=== PATIENT | female | born 1960 ===

== ENCOUNTER 2017-11-11 09:02 | Day surgery (SDC) | payer MEDICARE ==
[2017-11-01 15:00] VITALS: BMI 25.0
[2017-11-11] MEDS ORDERED: Lidocaine 2% Jelly (Uro-Jet) ONE (09:57)
[2017-11-11] MEDS ORDERED: Iohexol 240 200 ML ONE (10:00)
[2017-11-11] MEDS ORDERED: Iohexol 240 200 ML IJ ONE (10:19)
[2017-11-11] MEDS ORDERED: Lactated Ringer's 1,000 ML IV ONE (10:25)
[2017-11-11] MEDS ORDERED: Propofol 10 mg/ml Inj (20 ML) ONE (10:29)
[2017-11-11] MEDS ORDERED: Midazolam 2 MG/2 ML VIAL ONE (10:30)
[2017-11-11] MEDS ORDERED: HYDROmorphone 0.5 mg/0.5 ml ISec IVP PRN (11:02)
[2017-11-11] MEDS ORDERED: Lactated Ringer's 1,000 ML IV SCH (11:15)
[2017-11-11 13:06] VITALS: RESP 18
[2017-11-11 13:33] VITALS: BP 110/70; PULSE 60; TEMP 98; O2SAT 99
--- NOTE | 2017-11-11 15:01 | RAD ---
PROCEDURE: Intraoperative Fluoroscopy. HISTORY: CYSTOGRAM FINDINGS: Fluoroscopic assistance was provided for cystogram. Please refer to the operative report from DHAVAL Ghotra. Three images submitted 0.2 minutes fluoro time employed.
--- NOTE | 2017-11-20 14:17 | OP ---
PROCEDURE DATE: 11/12/2017 PREOPERATIVE DIAGNOSIS: Urinary incontinence. POSTOPERATIVE DIAGNOSIS: Urinary incontinence. PROCEDURE: Cystoscopy and cystogram. SURGEON: Eddi Oscar MD DESCRIPTION OF PROCEDURE: The patient was placed on the operating room table in a supine position. The area of the groin was draped and prepped in the sterile manner. At this time, number 16 two-way Cody catheter was inserted and the initial bladder was emptied. She had about 200 mL, but she had not voided prior to coming onto the operating room table. At this time, the bladder was filled capacity with cystographic material. She was able to hold about 350 mL in the bladder. At that point, she was full, I asked her to cough, Valsalva and attempt to avoid and in all incidences, she generated a maximum of bladder neck. Following this, the catheter was removed. The patient was asked to cough vigorously several times and she generated a negative Kei leak test. Following this, cystoscopy was performed. The bladder itself is normal in appearance. There is no unusual bladder wall lesions. Ureteral orifices are normally placed. Once this documentation was then described, the instrumentation was removed. The patient was taken from the operating room in good condition. Eddi Oscar MD
== END 2017-11-11 13:35 | disposition home or self-care (01) ==
LOC: H.OPSURG 09:02
PROVIDERS: ATTEND Urology
DX: R32 Unspecified urinary incontinence (principal)
CPT/HCPCS: 51600; 52000; J2250; J2704; J3010; J7120; Q9966